=== PATIENT | female | born 1970 | race Hispanic/Latino ===

== ENCOUNTER → 2024-09-01 | Day surgery (SDC) | payer OTHER ==
[~2024-09-01] MED LIST: ATORVASTATIN CA20 MG PO; LIDOCAINE HCL 2% LOCAL INJ 5 ML SDV VIAL INJ ONE; MIDAZOLAM HCL 2 MG/2 ML VIAL ONE; PROPOFOL IV EMULSION 10 MG/ML 20 ML VIAL ONE; VITAMIN D250 MCG PO
[2024-09-01] MEDS: LACTATED RINGER'S 1,000 ML ONE (11:24)
[2024-09-01 14:35] VITALS: TEMP 98.2
[2024-09-01 14:55] VITALS: BP 138/76; PULSE 66; RESP 18; O2SAT 99
== END | disposition home or self-care (01) ==
LOC: OR 10:29
PROVIDERS: ATTEND Internal Medicine Gastroenterology
DX: Z12.11 Encounter for screening for malignant neoplasm of colon (principal); D12.3 Benign neoplasm of transverse colon; K59.00 Constipation, unspecified; K62.5 Hemorrhage of anus and rectum; K64.8 Other hemorrhoids; D64.9 Anemia, unspecified; E78.5 Hyperlipidemia, unspecified; R03.0 Elevated blood-pressure reading, without diagnosis of hypertension; Z01.810 Encounter for preprocedural cardiovascular examination; Z68.34 Body mass index [BMI] 34.0-34.9, adult; Z85.828 Personal history of other malignant neoplasm of skin
CPT/HCPCS: 45385; 93005; J2003; J2250; J2704; J7121